=== PATIENT | female | born 1960 | race Caucasian/White ===

== ENCOUNTER 2018-01-12 11:42 | Emergency (ER) | payer SELFPAY ==
[~2018-01-12] VITALS: Ht 154.9 cm; Wt 85.6 kg
[~2018-01-12 11:42] MED LIST: ABILIFY5 MG; CIPROFLOXACIN500 M1; DOXYCYCLINE HY100 MG; FLEXERIL10 MG PO; HYDROCODONE BT1 EACH PO; MOTRIN800 MG PO; NAPROXEN500 MG PO; NOHOMEMEDS; NORVASC2.5 MG PO; PRAVACHOL40 MG PO; TYLENOL WITH C1 EACH PO; ULTRAM50 MG PO; WELLBUTRIN SR150 MG
[2018-01-12 12:18] LABS: HEMATOCRIT 36.5 % (36.0-46.0); HEMOGLOBIN 12.7 G/DL (11.9-15.5); MCH 31.4 PG (29.0-34.0); MCHC 34.8 G/DL (30.0-36.0); MCV 90.3 FL (83-99); PLATELET COUNT 427 K/uL (156-360); RBC DIS.WIDTH-SD 46.6 % (39-53); RED BLOOD COUNT 4.04 M/uL (3.80-5.20)
[2018-01-12 12:29] LABS: CHLORIDE 105 mEq/L (99-109); POTASSIUM 3.6 mEq/L (3.7-5.4); SODIUM 139 mEq/L (136-147)
[2018-01-12 12:31] LABS: GLUCOSE 106 mg/dL (70-99)
[2018-01-12 12:35] LABS: CREATININE 0.7 mg/dL (0.6-1.3); GFR ESTIMATE (CALCULATED) > 59 mL/min/; UREA NITROGEN (BUN) 10 mg/dL (9-23)
[2018-01-12 14:50] LABS: TROP-I INTERPRETATION NEGATIVE; TROPONIN-I < 0.01 ng/mL (0.0-0.30)
[2018-01-12 18:15] VITALS: BP 141/96
== END 2018-01-12 18:16 | disposition home or self-care (01) ==
LOC: EME 11:42
DX: R55 Syncope and collapse (principal); I10 Essential (primary) hypertension; E78.00 Pure hypercholesterolemia, unspecified; J45.909 Unspecified asthma, uncomplicated; G89.29 Other chronic pain; M25.559 Pain in unspecified hip; M54.9 Dorsalgia, unspecified; Z88.0 Allergy status to penicillin; Z90.710 Acquired absence of both cervix and uterus
CPT/HCPCS: 70450; 71046; 80048; 84484; 85027; 93005; 99281; 99284